=== PATIENT | female | born 1950 | race Caucasian/White ===

== ENCOUNTER → 2018-02-12 | Outpatient (CLI) | payer SELFPAY ==
--- NOTE | 2018-02-12 20:37 | EKG REPORT ---
SEVERITY:- NORMAL ECG - SINUS RHYTHM : Confirmed by: David Purcell MD 12-Feb-2018 20:36:17
== END ==
LOC: EDSEX 14:14 → OD 14:14
PROVIDERS: ATTEND Specialist
DX: R07.9 Chest pain, unspecified (principal)
CPT/HCPCS: 36415; 82550; 84484; 93005; 93010